=== PATIENT | female | born 1945 | race Caucasian/White ===

== ENCOUNTER 2024-02-12 14:22 | Outpatient (CLI) | payer MEDICARE, SELFPAY ==
--- NOTE | ~2024-02-12 | XR_ITS ---
EXAMINATION: XR lumbar spine 2-3V DATE: 02/12/2024 14:46 INDICATION: Radiculopathy, lumbosacral region. Low back pain. TECHNIQUE: 3 views of lumbar spine standing were obtained. COMPARISON: None. FINDINGS: There is 18 degrees dextroscoliosis of lumbar spine and 17 degrees levoscoliosis of lower l umbar spine. There is 3 mm anterolisthesis of L4 on L5. Vertebral body heights are normal. There is s everely decreased disc height at L1-L2, moderately decreased disc height at L2-L3, severely decreased disc height at L3-4, and mildly decreased disc height at L4-L5. There is multilevel severe facet harlan nt osteoarthritis. IMPRESSION: 1. Severe lumbar spondylosis. 2. Scoliosis. Reviewed, dictated and finalized at location A. [employer]
== END 2024-02-12 14:23 | disposition home or self-care (01) ==
PROVIDERS: PCP Pain Medicine Interventional Pain Medicine; Visit Provider Pain Medicine Interventional Pain Medicine
DX: G89.4 Chronic pain syndrome (principal); M47.26 Other spondylosis with radiculopathy, lumbar region; M41.9 Scoliosis, unspecified
CPT/HCPCS: 72100

== ENCOUNTER 2024-11-04 14:09 | Outpatient (CLI) | payer MEDICARE, SELFPAY ==
--- NOTE | ~2024-11-04 | XR_ITS ---
XR thoracic spine 3V 11/04/2024 14:33 Indication: Radiculopathy Procedure: 3 views thoracic spine Comparison: No prior studies for comparison. Findings: Mild dextroscoliosis. Moderate multilevel thoracic spondylosis most pronounced at the thora columbar junction. No paraspinal soft tissue abnormality. There is atherosclerosis of the aorta. No a cute fracture identified. Impression: 1: Moderate thoracic spondylosis with dextroscoliosis. Reviewed, dictated and finalized at location A. Impression: 1: Moderate thoracic spondylosis with dextroscoliosis.
--- NOTE | ~2024-11-04 | XR_ITS ---
XR lumbar spine 2-3V 11/04/2024 14:33 Indication: Radiculopathy. Procedure: 3 views lumbar spine Comparison: 02/12/2024 Findings: There is S-shaped scoliosis of the thoracolumbar spine. There is disc narrowing at all lumb ar levels. No acute fracture or traumatic malalignment. Osteopenia. Sacral foramen are symmetric. The re is atherosclerosis of the aorta and iliac vessels. There is grade 1 degenerative spondylolisthesis at L4-5. Impression: 1: Severe lumbar spondylosis with scoliosis. Reviewed, dictated and finalized at location A. Impression: 1: Severe lumbar spondylosis with scoliosis.
== END 2024-11-04 14:10 | disposition home or self-care (01) ==
LOC: MICIMG 14:12
PROVIDERS: PCP Internal Medicine; Visit Provider Pain Medicine Interventional Pain Medicine
DX: M47.26 Other spondylosis with radiculopathy, lumbar region (principal); M47.24 Other spondylosis with radiculopathy, thoracic region
CPT/HCPCS: 72072; 72100